=== PATIENT | female | born 1970 | race Caucasian/White ===

== ENCOUNTER → 2019-02-07 | Outpatient (CLI) | payer OTHER ==
[~2019-02-07] MED LIST: 5-HY100C3 PO; ASCO500T8 PO; AUGMENTIN PO; BIOT25005 PO; CALCIUM PO; CHOL200024 PO; CRANBERRY PO; LACT1CAP37 PO; MAGNESIUM PO; OMEG1CAP25 PO; [UNRECOGNIZED DRUG - CODE] PO
== END | disposition home or self-care (01) ==
LOC: CFH 08:13
PROVIDERS: ATTEND Family Medicine
DX: Z12.31 Encounter for screening mammogram for malignant neoplasm of breast (principal)
CPT/HCPCS: 77063; 77067